=== PATIENT | male | born 1955 | race Caucasian/White ===

== ENCOUNTER 2017-10-25 19:15 | Emergency (ER) | payer OTHER ==
[~2017-10-25] VITALS: Ht 182.9 cm; Wt 87.8 kg
[~2017-10-25 19:15] MED LIST: NAPROXEN500 MG PO; TYLENOL PM1 CAPLET PO
[2017-10-25 20:10] LABS: HEMATOCRIT 42.6 % (38.0-50.0); HEMOGLOBIN 14.3 G/DL (12.5-16.6); MCH 29.8 PG (29.0-34.0); MCHC 33.6 G/DL (30.0-36.0); MCV 88.8 FL (86-99); PLATELET COUNT 277 K/uL (156-360); RBC DIS.WIDTH-CV 11.9 % (11.8-14.6); RBC DIS.WIDTH-SD 39.1 % (39-53); WHITE BLOOD COUNT 9.6 K/uL (4.1-10.2)
[2017-10-25 20:17] LABS: CHLORIDE 105 mEq/L (99-109); POTASSIUM 4.1 mEq/L (3.7-5.4); SODIUM 136 mEq/L (136-147)
[2017-10-25 20:19] LABS: GLUCOSE 125 mg/dL (70-99)
[2017-10-25 20:23] LABS: CREATININE 0.9 mg/dL (0.6-1.3); GFR ESTIMATE (CALCULATED) > 59 mL/min/ (58.99-99999)
[2017-10-25 20:24] LABS: UREA NITROGEN (BUN) 19 mg/dL (9-23)
[2017-10-25 20:30] LABS: TROP-I INTERPRETATION NEGATIVE; TROPONIN-I < 0.01 ng/mL (0.0-0.30)
[2017-10-25] MEDS ORDERED: TESSALON PERLE100 MG PO (20:46)
[2017-10-25] MEDS ORDERED: [UNRECOGNIZED DRUG - OTHER] PO (20:50)
[2017-10-25 21:48] VITALS: BP 132/76
== END 2017-10-25 21:52 | disposition home or self-care (01) ==
LOC: EME 19:15
PROVIDERS: Nurse Practitioner Family
DX: J06.9 Acute upper respiratory infection, unspecified (principal); R07.89 Other chest pain; K21.9 Gastro-esophageal reflux disease without esophagitis; Z87.891 Personal history of nicotine dependence; Z88.5 Allergy status to narcotic agent
CPT/HCPCS: 71020; 80048; 84484; 85027; 85379; 93005; 94640; 99281; 99284